=== PATIENT | male | born 1980 | race Caucasian/White ===

== ENCOUNTER 2017-09-25 16:08 | Emergency (ER) | payer SELFPAY ==
[~2017-09-25] VITALS: Ht 182.9 cm; Wt 88.0 kg
[2017-09-25 16:10] VITALS: BP 139/102; PULSE 106; RESP 16; TEMP 98.9; O2SAT 98
--- NOTE | 2017-09-25 16:36 | PD ---
HPI Chief Complaint: Injury Time Seen by Provider: 16:28 Travel History International Travel<30 days: No Contact w/Intl Traveler<30days: No Traveled to known affect area: No History of Present Illness HPI 37-year-old male presents to the emergency department for evaluation right foot injury that occurred 2-3 days ago. He states he was play fighting with a friend. He flipped over and landed on his foot wrong. He denies any other injury. Current pain is 9/10 to the right lateral foot, aching and throbbing, without radiation. Patient is on chronic pain medication including Flexeril, naproxen, oxycodone, gabapentin. Moderate severity. PFSH Past Medical History Hx Anticoagulant Therapy: No Diabetes: No Social History Alcohol Use: Yes Tobacco Use: Yes Substance Use: Yes (Marijuana) Allergies-Medications (Allergen,Severity, Reaction): Coded Allergies: No Known Allergies (Unverified , 09/25/17) Reported Meds & Prescriptions Reported Meds & Active Scripts Active Reported [muscle relaxer] Unknown Strength Unknown Dose PO TID PRN Naproxen 500 Mg Tab 500 Mg PO BID Oxycodone (Oxycodone HCl) 10 Mg Tab 10 Mg PO TID PRN Gabapentin Unknown Strength Cap Unknown Dose PO HS Review of Systems Except as stated in HPI: all other systems reviewed are Neg Physical Exam Narrative GENERAL: Well-nourished, well-developed male patient afebrile. SKIN: Focused skin assessment warm/dry. HEAD: Normocephalic. Atraumatic. EYES: No scleral icterus. No injection or drainage. NECK: Supple, trachea midline. No JVD or lymphadenopathy. CARDIOVASCULAR: Regular rate and rhythm without murmurs, gallops, or rubs. Right pedal pulse is 2+. RESPIRATORY: Breath sounds equal bilaterally. No accessory muscle use. Lung sounds are clear to auscultation. GASTROINTESTINAL: Abdomen soft, non-tender, nondistended. MUSCULOSKELETAL: No cyanosis, or edema. Patient has tenderness to palpation over right lateral foot. No obvious deformity. Data Data Last Documented VS Vital Signs Date Time Temp Pulse Resp B/P (MAP) Pulse Ox O2 Delivery O2 Flow Rate FiO2 09/25/17 16:37 16 98 Room Air 09/25/17 16:10 98.9 106 139/102 (114) Orders Orders Foot, Complete ([id number]) (09/25/17 ) Ketorolac Inj (Toradol Inj) (09/25/17 16:45) MDM Medical Decision Making Medical Screen Exam Complete: Yes Emergency Medical Condition: Yes Medical Record Reviewed: Yes Interpretation(s) x-ray right foot - CONCLUSION: No evidence of recent bony injury. Differential Diagnosis Fracture versus contusion versus sprain versus dislocation Narrative Course 37-year-old male presents to the emergency department for evaluation of right foot injury. Patient is given Toradol 60 mg IM. X-ray of the right foot is ordered and pending. X-ray of the right foot X-ray of the right foot shows no evidence of recent bony injury. Patient provided Slick wrap. He declines crutches. He is instructed to ice, elevate. He is to follow-up with a primary care physician return here for any acute worsening of symptoms. The patient was discharged in stable condition with instructions, including return instructions and follow up instructions. Diagnosis Primary Impression: Right foot sprain Qualified Codes: S93.601A - Unspecified sprain of right foot, initial encounter Referrals: Primary Care Physician call for appointment Patient Instructions: Foot Sprain (ED), General Instructions Additional Instructions: Wear Slick bandage as needed for support. Ice for 20 minutes 4-5 times daily. Elevate. Continue prescribed pain medication as directed as needed for pain. Follow-up with a primary care physician. Return to the emergency department for any acute worsening of symptoms. Med/Other Pt SpecificInfo: No Change to Meds Disposition: 01 DISCHARGE HOME Condition: Stable PengPatricia Sep 25, 2017 16:36
[2017-09-25] MEDS ORDERED: KETOROLAC TROMETHAMINE 60 MG/2 ML (IM) VIAL IM ONE (16:45)
[2017-09-25] MEDS ORDERED: GABA100C4 PO (16:54)
[2017-09-25] MEDS ORDERED: OXYC-395 PO (16:54)
[2017-09-25] MEDS ORDERED: NAPR500T2 PO (16:54)
[2017-09-25] MEDS ORDERED: muscle relaxer PO (16:54)
--- NOTE | 2017-09-25 17:46 | RADRPT ---
EXAM DATE/TIME: 09/25/2017 16:51 [facility] COMPARISON: No previous studies available for comparison. INDICATIONS : Right foot pain after wrestling three days ago. MEDICAL HISTORY : Smoker. SURGICAL HISTORY : None. ENCOUNTER: Initial ACUITY: 3 days PAIN SCORE: 10/10 LOCATION: Right lateral foot. FINDINGS: Three view examination of the right foot demonstrates no soft tissue swelling, dislocation, or fractu re. The tarsal bones appear intact. The interphalangeal and metatarsophalangeal joints are intact. The calcaneus is intact. Bony mineralization is normal. CONCLUSION: No evidence of recent bony injury. Diony Rendon MD on September 25, 2017 at 17:43 Board Certified Radiologist. This report was verified electronically.
== END 2017-09-25 18:15 | disposition home or self-care (01) ==
LOC: PHEFT 16:08
DX: S93.601A Unspecified sprain of right foot, initial encounter (principal); F12.90 Cannabis use, unspecified, uncomplicated; X50.1XXA Overexertion from prolonged static or awkward postures, initial encounter; Z72.0 Tobacco use
CPT/HCPCS: 73630; 96372; 99283; J1885

== ENCOUNTER 2017-11-23 16:53 | Emergency (ER) | payer SELFPAY ==
[~2017-11-23] VITALS: Ht 182.9 cm; Wt 92.0 kg
[~2017-11-23 16:53] MED LIST: GABA100C4 PO; NAPR500T2 PO; OXYC-395 PO; muscle relaxer PO
[2017-11-23 18:30] VITALS: BP 142/94; PULSE 66; RESP 19; TEMP 98.9; O2SAT 99
== END 2017-11-23 20:26 | disposition left against medical advice (07) ==
LOC: NED 16:53
DX: Z03.89 Encounter for observation for other suspected diseases and conditions ruled out (principal)
CPT/HCPCS: 99281